=== PATIENT | male | born 1975 | race Caucasian/White ===

== ENCOUNTER 2025-02-02 10:46 | Outpatient (CLI) | payer MEDICARE, MEDICAID ==
--- NOTE | 2025-02-02 11:54 | ELECTROCARDIOGRAPH REPORT ---
[facility] Test Date: 2025-02-02 Test Time: 11:10:49 Pat Name: ZACK VALLADARES Department: PRE/OP CARDIOLOGY Room: Gender: M Appraiser: : 1975 Requested By: VINCE PANTOJA Order Number: [id number] Reading MD: Dr. Scot Dyer Measurements Intervals [place] Rate: 52 P: 38 AK: 173 QRS: 65 QRSD: 84 T: 49 QT: 415 QTc: 386 Interpretive Statements Sinus bradycardia Probable left atrial enlargement Abnormal R-wave progression, delayed precordial transition ST elev, probable normal early repol pattern Electronically Signed On 02-03-2025 8:46:[address] Scot Dyer Please click the below link to view image of tracing.
== END 2025-02-02 23:59 | disposition home or self-care (01) ==
LOC: RAD 10:46
PROVIDERS: ATTEND Physician Assistant
DX: R00.1 Bradycardia, unspecified (principal); F11.20 Opioid dependence, uncomplicated; I21.29 ST elevation (STEMI) myocardial infarction involving other sites
CPT/HCPCS: 93005

== ENCOUNTER 2025-02-12 09:35 | Outpatient (CLI) | payer MEDICARE, MEDICAID ==
--- NOTE | 2025-02-12 12:08 | ELECTROCARDIOGRAPH REPORT ---
[facility] Test Date: 2025-02-12 Test Time: 09:52:03 Pat Name: ZACK VALLADARES Department: PRE/OP CARDIOLOGY Room: Gender: M Mechanical Planner: KUNAL : 1975 Requested By: VINCE PANTOJA Order Number: [id number] Reading MD: Dr. PHILIP Ho Measurements Intervals [place] Rate: 59 P: 44 AK: 164 QRS: 35 QRSD: 84 T: 44 QT: 416 QTc: 413 Interpretive Statements Sinus bradycardia Electronically Signed On 02-12-2025 16:51:[address] PHILIP Ho Please click the below link to view image of tracing.
== END 2025-02-12 23:59 | disposition home or self-care (01) ==
LOC: RAD 09:35
PROVIDERS: ATTEND Physician Assistant
DX: R00.1 Bradycardia, unspecified (principal); F11.20 Opioid dependence, uncomplicated
CPT/HCPCS: 93005